=== PATIENT | male | born 1955 | race Caucasian/White ===

== ENCOUNTER 2024-01-07 10:12 | Emergency (ER) | payer OTHER, SELFPAY ==
[2024-01-07 10:20] VITALS: BP 127/83
[2024-01-07 10:49] LABS: % Eosinophils 1.7 % (0-6); % Immature Granulocytes 0.3 % (0-0.5); % Lymphocytes 18.2 % (20.5-51.1); % Monocytes 8.5 % (1.7-9.3); % Neutrophils 70.3 % (42.2-75.2); Absolute Basophils 0.1 10^3/uL (0-0.2); Absolute Eosinophils 0.1 10^3/uL (0-0.7); Absolute Lymphocytes 1.4 10^3/uL (1.2-3.4); Absolute Monocytes 0.7 10^3/uL (0.1-0.6); Absolute Neutrophils 5.4 10^3/uL (1.4-6.5); Hematocrit 44.9 % (39.0-52.0); Hemoglobin 15.1 g/dL (13.0-18.0); Mean Corp Hgb Conc. 33.6 g/dL (33.0-37.0); Mean Corpuscular Hgb 28.4 pg (27.0-31.0); Mean Corpuscular Volume 84.4 fL (80.0-94.0); Mean Platelet Volume 10.5 fL (7.4-10.4); Nucleated Red Blood Cells % 0 % (-); Platelet Count 299 10^3/uL (130-400); Red Blood Cell Count 5.32 10^6/uL (4.70-6.10); White Blood Cell Count 7.7 10^3/uL (4.8-10.8)
[2024-01-07 10:59] VITALS: BP 126/73; BMI 29.0
[2024-01-07 10:59] LABS: ALT (SGPT) 19 U/L (0-50); AST (SGOT) 22 U/L (17-59); Albumin 4.4 g/dl (3.5-5.0); Alkaline Phosphatase 99 U/L (38-126); Blood Urea Nitrogen 18 mg/dl (9-20); Calcium 9.5 mg/dl (8.4-10.2); Carbon Dioxide 21 mmol/L (22-30); Chloride 104 mmol/L (98-107); Glucose 142 mg/dl (70-99); Potassium 4.5 mmol/L (3.5-5.1); Sodium 140 mmol/L (135-145); Total Bilirubin 0.6 mg/dl (0.2-1.3); Total Protein 7.4 g/dl (6.3-8.2); eGFR > 60.00
--- NOTE | 2024-01-07 11:09 | ED.GENMED ---
History of Present Illness
General
Chief Complaint: Dizziness
Source: patient and spouse
Exam Limitations: none
Time Seen by Provider: 01/07/24 10:41
Nursing documentation reviewed up to this point in time: agreed with
History of Present Illness
History of Present Illness:
68 yo male w h/o headaches, MA, NIDDM, Cardiac stents presents for dizziness, headache. 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 He is imbalanced with ambulation,
listing to the right. Moving head side to side makes the room spin. Has had nausea, no vomiting. He is sleeping well through nights. Headache is frontal 5/10. Took ASA once with no improvement. No recent head trauma. Not anticoagulate. Denies
numbness, tingling weakness in extremities.
Past History
Past History
ED Past Medical History: Hypercholesterolemia, NIDDM and MA
ED Past Surgical History: Cardiac (stent)
Patient has exhibited threatening behavior?: No
PSI?: No
Social History
Personal:
Living: with family
Employment: Employed
Review of Systems
Review of Systems
Allergies reviewed?: Yes
All Other Systems: ROS reviewed and negative except as documented in HPI and ROS
Constitutional: Denies fever
Respiratory: Denies trouble breathing
Cardiac: Denies chest pain, palpitations or syncope
ABD/GI: Reports nausea; Denies abdominal pain, vomiting or diarrhea
Musculoskeletal: Reports no symptoms
Skin: Reports no symptoms
Neurological: Reports dizzy and headache; Denies weakness
Phy Exam
Physical Exam
Physical Exam:
GENERAL: No acute distress. A&Ox3.
CONSTITUTIONAL: Afebrile.
EYES: PERRL, conjunctivae normal
Neck: Supple
ENMT: moist mucus membranes, Pharynx nl
RESPIRATORY: Regular respirations, nonlabored, lungs clear.
CARDIOVASCULAR: Regular rate and rhythm, no murmurs, no rubs.
GI: Soft, nontender, normal BS
MUSCULOSKELETAL: Moves with ease. Well perfused.
SKIN: Warm, dry, pink
PSYCH: Normal mood and affect. Well kept, interactive and appropriate
NEUROLOGIC: Awake, alert and oriented. Cranial nerves II through XII intact. [id number] intact. Romberg negative. No focal neurological deficits
Course
Orders/Labs/Results
Orders:
Orders
01/07/24 10:27
Electrocardiogram (*1) Urgent
Reason for Study: Vertigo / Dizzy
EKG- Treatment ONCE
01/07/24 10:36
Complete Blood Count/With Diff Urgent
Comprehensive Metabolic Panel Urgent
01/07/24 11:41
CT Head W/o Iv Contrast Urgent
Comment:
Reason For Exam: dizziness, nausea, headache
01/07/24 13:19
Physical Therapy Consult [Pt Eval And Treat] Urgent
Treatment: Vestibular evaluation
Activity Level: As Tolerated
Abnormal Lab Results
01/07/24
10:36
MPV 10.5 H fL
(7.4-10.4)
Absolute Monos (auto) 0.7 H 10^3/uL
(0.1-0.6)
Lymphocytes % 18.2 L %
(20.5-51.1)
Carbon Dioxide 21 L mmol/L
(22-30)
Glucose 142 H mg/dl
(70-99)
01/07/24 10:36
01/07/24 10:36
Vital Signs
Initial and Last Documented VS:
Initial Vital Signs
Temp Pulse Resp BP Pulse Ox
97.9 F 67 18 127/83 99
01/07/24 10:20 01/07/24 10:20 01/07/24 10:20 01/07/24 10:20 01/07/24 10:20
Last Documented Vital Signs
Temp Pulse Resp BP Pulse Ox
97.9 F 58 18 110/70 97
01/07/24 10:20 01/07/24 15:00 01/07/24 15:00 01/07/24 12:00 01/07/24 11:15
MDM/Problems Addressed
Differential Diagnosis Includes:
BPPV, labyrinthitis, CVA
MDM/Problems Addressed:
68 yo male w h/o headaches, MA, NIDDM, Cardiac stents presents for dizziness, headache. 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 He is imbalanced with ambulation,
listing to the right. Moving head side to side makes the room spin. Has had nausea, no vomiting. He is sleeping well through nights. Headache is frontal 5/10. Took ASA once with no improvement. No recent head trauma. Not anticoagulate. Denies
numbness, tingling weakness in extremities.
EKG sinus bradycardia with RBBB, no change
11:10 AM:
CBC unremarkable
CMP unremarkable
Head CT negative
3:45 p.m.
Physical therapy Dolores in, states patient is positive for BPPV with right posterior canal listhesis
She given referral to the vestibular clinic and I gave them a prescription for same
Patient states he is feeling much better
Prescription for meclizine sent to pt pharmacy
Pt ambulated out with normal gait
*EKG
EKG Intrepretation Date: 01/07/24
Interpretation: abnormal
Comparison EKG: no comparison EKG present
Heart Rate: 58
Rate: bradycardiac
Rhythm: sinus
Placedo: left axis deviation
Interval: normal interval
QRS Pattern: right bundle branch block
Ischemia: no ischemia
*Critical Care Note
Total Time (30-74mins, 75-104mins- exclusive of procedures): Not Applicable
ED Attending Note
-
Portions of this chart may have been created with voice recognition software.� Occasional wrong word or��sound alike� substitutions may have occurred due to the inherent limitations of voice recognition software.
Discharge Plan
Departure
Patient Disposition: Home (Routine Discharge)
Date of Disposition: 01/07/24
Time of Disposition: 15:48
Patient with high blood pressure during this ER visit?: No
Condition: Good
Discharge Problem:
Benign paroxysmal positional vertigo
Instructions: Vertigo (a type of dizziness), Vestibular Exercises
Prescriptions:
New
meclizine 25 mg tablet
25 mg PO TID PRN (Reason: dizziness) Qty: 20 0RF
No Action
Onglyza 2.5 MG tablet
5 mg PO QPM
atorvastatin 80 MG tablet
80 mg PO QPM Qty: 90 3RF
clopidogrel 75 MG tablet
75 mg PO DAILY Qty: 90 3RF
aspirin 81 MG tablet,chewable
81 mg PO DAILY Qty: 0 0RF
nitroglycerin 0.4 MG tablet, sublingual
0.4 mg sublingual [id number] PRN (Reason: chest pain) Qty: 25 2RF
metformin 1,000 MG tablet
1,000 mg PO BID Qty: 0 0RF
Rx Instructions:
HOLD post cath- OK to resume on Sun 11/03 in AM
(DME) blood sugar diagnostic [Blood Glucose Test] 1 EACH strip
1 ea MC BID Qty: 100 1RF
Rx Instructions:
E 11.65
Test strips for Contour next to test BID as directed
(DME) lancets 1 EACH misc
1 ea MC BID Qty: 100 0RF
Rx Instructions:
E 11.65
Contour Next lancets
gabapentin 100 mg Capsule
200 mg PO HS Qty: 60 0RF
Referrals:
Willian Aguirre, DO [Family Provider] - As needed
Activity Restrictions/Additional Instructions:
As discussed, I sent a prescription to your pharmacy for meclizine to take as needed for dizziness.
Call and make an appointment with the vestibular clinic as you discussed with the physical therapist Dolores
Interventions
Interventions:
*Risk Screen - Suicide Last Done: 01/07/24 10:24
*General Assessment Last Done: 01/07/24 11:00
*Neglect/Abuse Screening Last Done: 01/07/24 10:24
ED- Fall Risk Assessment Last Done: 01/07/24 11:00
*ED COVID-19 Vaccine History Last Done: 01/07/24 11:00
*Nursing Disposition Last Done: 01/07/24 15:56
ED- Neurological Assessment Last Done: 01/07/24 11:00
ED- Cardiac Assessment Last Done: 01/07/24 11:00
Discharge Date and Time
Discharge Date/Time: 01/07/24 16:00
Print Language: BULGARIAN
[2024-01-07 12:00] VITALS: BP 110/70
[2024-01-07 15:50] VITALS: BP 110/82; PULSE 60
== END 2024-01-07 16:00 | disposition home or self-care (01) ==
LOC: EMR 10:12
PROVIDERS: Registered Nurse; EMERGENCY PHYSICIAN Emergency Medicine; FAMILY PHYSICIAN Family Medicine
DX: H81.11 Benign paroxysmal vertigo, right ear (principal); I25.2 Old myocardial infarction; E11.9 Type 2 diabetes mellitus without complications
CPT/HCPCS: 99285; 70450; 80053; 85025; 93005

== ENCOUNTER 2025-01-30 21:30 | Inpatient (IN) | payer OTHER, SELFPAY ==
[2025-01-30] VITALS (8 sets, daily range): BP systolic 115–129; BP diastolic 49–72
[2025-01-30 13:04] LABS: Hematocrit 42.9 % (39.0-52.0); Hemoglobin 14.3 g/dL (13.0-18.0); Mean Corp Hgb Conc. 33.3 g/dL (33.0-37.0); Mean Corpuscular Volume 84.8 fL (80.0-94.0); Nucleated Red Blood Cells % 0 % (-); Platelet Count 270 10^3/uL (130-400); Red Cell Dist. Width 13.0 % (11.5-14.5)
[2025-01-30 13:20] LABS: COVID-19 Antigen Negative (Negative)
[2025-01-30 13:25] LABS: ALT (SGPT) 13 U/L (0-50); AST (SGOT) 14 U/L (17-59); Albumin 4.2 g/dl (3.5-5.0); Alkaline Phosphatase 105 U/L (38-126); Blood Urea Nitrogen 14 mg/dl (9-20); Calcium 8.9 mg/dl (8.4-10.2); Carbon Dioxide 23 mmol/L (22-30); Chloride 105 mmol/L (98-107); Glucose 179 mg/dl (70-99); Potassium 4.9 mmol/L (3.5-5.1); Sodium 136 mmol/L (135-145); Total Protein 7.3 g/dl (6.3-8.2); eGFR > 60.00
[2025-01-30 13:34] LABS: Troponin I < 0.012 ng/ml
--- NOTE | 2025-01-30 14:50 | ED.GENMED ---
History of Present Illness
<PRISCILA Contreras - Last Filed: 01/30/25 19:42>
General
Chief Complaint: Dizziness
Source: patient
Exam Limitations: none
Time Seen by Provider: 01/30/25 14:40
Nursing documentation reviewed up to this point in time: agreed with
History of Present Illness
History of Present Illness:
Patient is a 69-year-old male with past medical history of CAD [place] cardiac stents peripheral neuropathy diabetes diabetes presents to the ER for evaluation. Family reports patient has had a cough for the past 2 weeks. Patient complains of mild body
directed fevers. Recently however he has had increasing confusion. Family reports at times he seems delirious and very confused stating things that does not make any sense. at bedside reports she does feel however that this has been
intermittent for the past month. In addition his balance is very off they believe that symptoms have worsened for the past several days since he has been sick but the symptoms are not necessarily new. Daughter at bedside reports she is very
concerned about his medications. She was looking at his medications and realized the patient is on gabapentin 300 mg 3 times daily and gabapentin 800 mg twice daily as well. In addition he is on meclizine however they are not sure why he is on
this medication. Yeah
Pt does not drink alcohol, non smoker. yeah
Past History
<PRISCILA Contreras - Last Filed: 01/30/25 19:42>
Past History
ED Past Medical History: Hypercholesterolemia, NIDDM and [place]
ED Past Surgical History: Cardiac (stent)
Patient has exhibited threatening behavior?: No
PSI?: No
Social History
Personal:
Living: with family
Employment: Employed
Phy Exam
<PRISCILA Contreras - Last Filed: 01/30/25 19:42>
General Physical Exam
General Presentation: no apparent distress
General age: appears stated age
General Skin: warm and dry
General Habitus: normal
General Mental: alert
General Hydration: dry mucous membranes
Cardiovascular Exam
Cardiovascular Exam: regular rate/rhythm, no murmur and normal peripheral pulses
Pulmonary Exam
Pulmonary Exam: lungs clear and no respiratory distress
Neurological Exam
Neurological Exam: alert, oriented x3, no motor deficits and no sensory deficits
Musculoskeletal Exam
Musculoskeletal Exam: full ROM
Skin Exam
Skin Exam: normal color and warm/dry
Psychiatric Exam
Psychiatric Exam: normal mood/affect
Course
<PRISCILA Contreras - Last Filed: 01/30/25 19:42>
Orders/Labs/Results
Orders:
Orders
01/30/25 12:40
Electrocardiogram (*1) Urgent
Reason for Study: Chest Pain
01/30/25 12:41
EKG- Treatment ONCE
01/30/25 12:55
COVID-19 Antigen Urgent
Source: Nasal Swab
Complete Blood Count/With Diff Urgent
Comprehensive Metabolic Panel Urgent
Troponin I Urgent
Influenza A+B Rapid Molecular Urgent
PK Source: Nasal Swab
Specimen Description:
01/30/25 14:[address] [CT Head W/o Iv Contrast] Urgent
Comment:
Reason For Exam: confusion
01/30/25 15:09
Chest [CR Chest - 2 Views ] Urgent
Comment:
Reason For Exam: cough /sob
01/30/25 15:20
0.9% Sodium Chloride 1000 ml [Nss] 1,000 ml IV BOLUS
01/30/25 19:21
UA Reflex to Culture [Urinalysis Reflex To Culture] Urgent
Date Specimen was Collected: 01/30/25
Time Specimen was Collected: 17:52
01/30/25 19:34
Azithromycin 500 mg/250 ml [Zithromax Infusion] 500 mg in 250 ml IV NOW
CefTRIAXone [Rocephin] 1,000 mg IV NOW STA
01/30/25 19:59
Sterile Water [Sterile Water For Injection] 10 ml .ROUTE .STK-MED ONE
01/30/25 20:30
Ketorolac [Toradol] 15 mg IV NOW STA
Abnormal Lab Results
01/30/25 01/30/25
12:55 19:21
WBC 13.0 H 10^3/uL
(4.8-10.8)
MPV 10.6 H fL
(7.4-10.4)
Abs Immat Gran (auto) 0.1 H 10^3/uL
(0-0.05)
Absolute Neuts (auto) 11.1 H 10^3/uL
(1.4-6.5)
Absolute Lymphs (auto) 0.5 L 10^3/uL
(1.2-3.4)
Absolute Monos (auto) 1.1 H 10^3/uL
(0.1-0.6)
Neutrophils % 85.5 H %
(42.2-75.2)
Lymphocytes % 4.1 L %
(20.5-51.1)
Glucose 179 H mg/dl
(70-99)
AST 14 L U/L
(17-59)
Urine Urobilinogen 2+ A
(Neg - 1+)
01/30/25 12:55
01/30/25 12:55
Vital Signs
Initial and Last Documented VS:
Initial Vital Signs
Temp Pulse Resp BP Pulse Ox
99.5 F 73 18 122/65 97
01/30/25 12:34 01/30/25 12:34 01/30/25 12:34 01/30/25 12:34 01/30/25 12:34
Last Documented Vital Signs
Temp Pulse Resp BP Pulse Ox
99.5 F 77 16 129/62 97
01/30/25 20:02 01/30/25 20:02 01/30/25 20:02 01/30/25 20:02 01/30/25 20:02
[employer] Library Clerk consulted with Physician
[employer] Library Clerk consulted with physician?: Yes
Name of Physician Consulted: alanna
<Sonia Bal MD - Last Filed: 01/30/25 20:32>
Orders/Labs/Results
Orders:
Orders
01/30/25 12:40
Electrocardiogram (*1) Urgent
Reason for Study: Chest Pain
01/30/25 12:41
EKG- Treatment ONCE
01/30/25 12:55
COVID-19 Antigen Urgent
Source: Nasal Swab
Complete Blood Count/With Diff Urgent
Comprehensive Metabolic Panel Urgent
Troponin I Urgent
Influenza A+B Rapid Molecular Urgent
PK Source: Nasal Swab
Specimen Description:
01/30/25 14:[address] [CT Head W/o Iv Contrast] Urgent
Comment:
Reason For Exam: confusion
01/30/25 15:09
Chest [CR Chest - 2 Views ] Urgent
Comment:
Reason For Exam: cough /sob
01/30/25 15:20
0.9% Sodium Chloride 1000 ml [Nss] 1,000 ml IV BOLUS
01/30/25 19:21
UA Reflex to Culture [Urinalysis Reflex To Culture] Urgent
Date Specimen was Collected: 01/30/25
Time Specimen was Collected: 17:52
01/30/25 19:34
Azithromycin 500 mg/250 ml [Zithromax Infusion] 500 mg in 250 ml IV NOW
CefTRIAXone [Rocephin] 1,000 mg IV NOW STA
01/30/25 19:59
Sterile Water [Sterile Water For Injection] 10 ml .ROUTE .STK-MED ONE
01/30/25 20:30
Ketorolac [Toradol] 15 mg IV NOW STA
Abnormal Lab Results
01/30/25 01/30/25
12:55 19:21
WBC 13.0 H 10^3/uL
(4.8-10.8)
MPV 10.6 H fL
(7.4-10.4)
Abs Immat Gran (auto) 0.1 H 10^3/uL
(0-0.05)
Absolute Neuts (auto) 11.1 H 10^3/uL
(1.4-6.5)
Absolute Lymphs (auto) 0.5 L 10^3/uL
(1.2-3.4)
Absolute Monos (auto) 1.1 H 10^3/uL
(0.1-0.6)
Neutrophils % 85.5 H %
(42.2-75.2)
Lymphocytes % 4.1 L %
(20.5-51.1)
Glucose 179 H mg/dl
(70-99)
AST 14 L U/L
(17-59)
Urine Urobilinogen 2+ A
(Neg - 1+)
01/30/25 12:55
01/30/25 12:55
Vital Signs
Initial and Last Documented VS:
Initial Vital Signs
Temp Pulse Resp BP Pulse Ox
99.5 F 73 18 122/65 97
01/30/25 12:34 01/30/25 12:34 01/30/25 12:34 01/30/25 12:34 01/30/25 12:34
Last Documented Vital Signs
Temp Pulse Resp BP Pulse Ox
99.5 F 77 16 129/62 97
01/30/25 20:02 01/30/25 20:02 01/30/25 20:02 01/30/25 20:02 01/30/25 20:02
<PRISCILA Contreras - Last Filed: 01/30/25 19:42>
MDM/Problems Addressed
Differential Diagnosis Includes:
Not limited to COVID, pneumonia, influenza
MDM/Problems Addressed:
69-year-old male presented with cough over the past 1 to 2 weeks however family reports he is weak and not himself. In addition they report off-and-on for the past several months he has had some issues with walking and intermittent confusion.
He is on a lot of gabapentin as well as questionable meclizine however there is no clear reason for meclizine. His primary complaint is cough he does have an elevated white count of 13,000 temp is 99.5. Chest x-ray reviewed with radiology shows
suspicious for interstitial infiltrate in the left perihilar and lower lobe. Would recommend admission
<PRISCILA Contreras - Last Filed: 01/30/25 19:42>
*Radiology
Radiology exam reviewed: radiology read reviewed
*Pulse Oximetry
SaO2: 99
Oxygen Mode of Delivery: Room air
Patient hypoxic: no
*EKG
Interpreted by ED Provider?: Yes
Heart Rate: 68
Rate: normal
Rhythm: sinus
Ischemia: non-specific ST changes
*Critical Care Note
Total Time (30-74mins, 75-104mins- exclusive of procedures): Not Applicable
ED Attending Note
<PRISCILA Contreras - Last Filed: 01/30/25 19:42>
-
Portions of this chart may have been created with voice recognition software.� Occasional wrong word or��sound alike� substitutions may have occurred due to the inherent limitations of voice recognition software.
<Sonia Bal MD - Last Filed: 01/30/25 20:32>
ED Attending Note
Patient seen and examined by attending physician: Yes
I performed the substantive portion of visit, reviewed & personally made and approve the management plan that is documented in note by myself or ANAHI.: Yes
ED Attending Note:
Patient appears nontoxic. He is breathing comfortably. Heart sounds regular. Abdomen is soft and nontender. Family expresses they are very concerned that he has had several months of being off balance and at times confusion.
Discharge Plan
Departure
Patient Disposition: Admit
Date of Disposition: 01/30/25
Time of Disposition: 19:38
Admit to: Med/Surg
Admit to doctor: hospitalist
Presentation/result/management discussed w/ accepting MD/DO: Hospitalist
Patient with high blood pressure during this ER visit?: No
Condition: Fair
Covid-19: Not Applicable
Discharge Problem:
Pneumonia
Prescriptions:
No Action
saxagliptin [Onglyza] 2.5 MG tablet
5 mg PO QPM
Rx Instructions:
not on list obtained by daughter from PCP today
atorvastatin 80 MG tablet
80 mg PO QPM Qty: 90 3RF
Rx Instructions:
not on list obtained by daughter from PCP today
clopidogrel 75 MG tablet
75 mg PO DAILY Qty: 90 3RF
Rx Instructions:
not on list obtained by daughter from PCP today
aspirin 81 MG tablet,chewable
81 mg PO DAILY Qty: 0 0RF
nitroglycerin 0.4 MG tablet, sublingual
0.4 mg sublingual [id number] PRN (Reason: chest pain) Qty: 25 2RF
Rx Instructions:
not on list obtained by daughter from PCP today
metformin 1,000 MG tablet
1,000 mg PO BID Qty: 0 0RF
Rx Instructions:
HOLD post cath- OK to resume on Sun 11/03 in AM
(DME) blood sugar diagnostic [Blood Glucose Test] 1 EACH strip
1 ea MC BID Qty: 100 1RF
Rx Instructions:
E 11.65
Test strips for Contour next to test BID as directed
(DME) lancets 1 EACH misc
1 ea MC BID Qty: 100 0RF
Rx Instructions:
E 11.65
Contour Next lancets
meclizine 25 mg tablet
25 mg PO TID PRN (Reason: dizziness) Qty: 20 0RF
gabapentin 100 mg capsule
300 mg PO 3XD
Rx Instructions:
patient takes 100 mg tablet, 3 times daily
gabapentin 400 mg Capsule
400 mg PO BID
mirtazapine [Remeron] 15 mg Tablet
2.5 mg PO DAILY
Rx Instructions:
2.5 mg daily according to patient's medication list obtained by daughter from PCP
rosuvastatin 40 mg Tablet
40 mg PO DAILY
Januvia 100 mg Tablet
100 mg PO DAILY
Jardiance 25 mg Tablet
25 mg PO DAILY
Rybelsus 3 mg Tablet
3 mg PO DAILY
Referrals:
Willian Aguirre DO [Family Provider, Family Practice]
Interventions
Interventions:
*General Assessment Last Done: 01/30/25 12:34
*Neglect/Abuse Screening Last Done: 01/30/25 20:00
*ED COVID-19 Vaccine History Last Done: 01/30/25 12:34
*ED Influenza Vaccine History Last Done: 01/30/25 12:34
[facility] Fall Risk Assessment Tool Last Done: 01/30/25 16:00
*Risk Screen - Suicide (C-SSRS) Last Done: 01/30/25 12:34
ED- Neurological Assessment Last Done: 01/30/25 16:00
ED- Cardiac Assessment Last Done: 01/30/25 16:00
ED Swallowing Screen Last Done: 01/30/25 16:00
Discharge Date and Time
Print Language: LAO
[2025-01-30] MEDS: NSS 1000 IV (17:55)
[2025-01-30 19:28] LABS: Urine Character Clear (Clear)
[2025-01-30] MEDS: ZITHROMAX INFUSION 250 IV (20:04)
[2025-01-30] MEDS: ROCEPHIN 1000 MG IV (20:04)
--- NOTE | 2025-01-30 21:17 | HPS.HSE ---
Family Physician
-
Family Physician: Willian Aguirre
Chief Complaint
-
Cough, Weakness, Confusion
History of Present Illness
Patient is a 69y M with PMH significant for ASCVD and DM-II who presents to ED complaining of cough, myalgias and confusion. History obtained from patient and family at the bedside. Patient states that he developed aches, cough and feeling
feverish about 3 days ago. His symptoms have progressed. is beginning to develop similar symptoms. No other known sick contacts. Patient denies any productive cough, SOB, etc. Family states that he has been more unsteady on his feet and
more confused in the past few days as well.
Today while at work with his son, he appeared to be completely unresponsive. He did not fall or suffer any injury. Son notes that he was yelling at the patient and patient was staring with no response. When he 'came to' he had no recollection of
that.
Patient and family note that he has had ongoing / progressive issues with intermittent headaches, unsteady gait and mild confusion / memory impairment for several years. Initial hospitalization here with complaint of headaches in 2021 and he was
evaluated by Neurology at that time. He notes that his symptoms have continued progressed. He is always unsteady upon standing. Patient was referred for outpatient eval / testing but notes that he became discouraged with long waits for
appointments / tests and was lost to follow-up. He has been on increasing doses of gabapentin since 2021 with minimal change in his symptoms.
These symptoms have been much worse in the past few days due to acute illness / pneumonia.
Medical History
Past Medical History
Past Medical History: Reports Other
Additional Past Medical History:
ASCVD
DM-II
RBBB
Peripheral Neuropathy
Past Surgical History: Reports Other
Additional Past Surgical History:
PTCA with Stent
Social History
Tobacco: Non-smoker
Alcohol: None
Drug: None
Personal:
Living: With Family
Family History
Family History: Other (Sister: Bone Cancer Mother: DM-II, CAD)
Allergies / Home Medications
Allergies reflects when Allergies were last updated in [employer].
Home Medications with original date entered in [employer]
Allergy/Medication List:
Allergies
Allergy/AdvReac Type Severity Reaction Status Date / Time
No Known Allergies Allergy Verified 01/30/25 12:40
Home Medications
aspirin 81 mg chewable tablet 81 mg PO DAILY #0 tabs 11/01/18
metformin 1,000 mg tablet 1,000 mg PO BID ##0 11/01/18
meclizine 25 mg tablet 25 mg PO TID PRN dizziness #20 tabs 01/07/24
empagliflozin 25 mg tablet (Jardiance) 25 mg PO DAILY 01/30/25
gabapentin 100 mg capsule 300 mg PO 3XD 01/30/25
gabapentin 400 mg capsule 400 mg PO BID 01/30/25
mirtazapine 15 mg tablet (Remeron) 2.5 mg PO DAILY 01/30/25
rosuvastatin 40 mg tablet 40 mg PO DAILY 01/30/25
semaglutide 3 mg tablet (Rybelsus) 3 mg PO DAILY 01/30/25
sitagliptin phosphate 100 mg tablet (Januvia) 100 mg PO DAILY 01/30/25
Review of Systems
-
History Source: Patient and Family
A 12 point ROS was completed and negative except as noted: Yes
Constitutional: Reports Fever and Fatigue; Denies Chills
EENT: Denies Sore Throat
Respiratory: Reports Cough; Denies Hemoptysis or Trouble Breathing
Cardiac: Denies Chest Pain or Palpitations
Abdomen/GI: Denies Abdominal Pain, Nausea, Vomiting or Diarrhea
: Denies Dysuria, Frequency or Flank Pain
Neurological: Reports Headache, Weakness and Other (Neuropathy pain.); Denies Dizzy
Psych: Reports Depression; Denies Anxiety
Physical Exam
Vital Signs
Vital Signs
Temp Pulse Resp BP Pulse Ox
99.5 F 77 16 129/62 97
01/30/25 20:02 01/30/25 20:02 01/30/25 20:02 01/30/25 20:02 01/30/25 20:02
Physical Exam
General: Other (69y M in no acute distress.)
HEENT: Other (Dry MM. Neck supple.)
Respiratory: Other (Coarse breath sounds mid left lung. No wheezing.)
Cardiac: S1/S2 and Regular Rhythm; No Murmur
GI: Soft, Non Tender, Non Distended and Normal Bowel Sounds
Musculoskeletal: No Clubbing, No Cyanosis and No Edema
Neuro: Other (Strength appears intact / symmetric. [id number] is slow but intact. Decreased sensation b/l LEs.)
Laboratory Results
-
01/30/25 12:55
01/30/25 12:55
Laboratory Results
Total Bilirubin 0.4 mg/dl (0.2-1.3) 01/30/25 12:55
AST 14 U/L (17-59) L 01/30/25 12:55
ALT 13 U/L (0-50) 01/30/25 12:55
Alkaline Phosphatase 105 U/L (38-126) 01/30/25 12:55
Troponin I < 0.012 ng/ml 01/30/25 12:55
Impression/Plan
-
A/P: Patient is a 69y M with PMH significant for ASCVD, DM-II and neuropathy who presents to ED complaining of cough, weakness and confusion.
Left Pneumonia
Acute TME secondary to the above
Sepsis secondary to the above
- Admit for further evaluation and treatment.
- Patient presents with cough and myalgias x 3 days and evidence of organ dysfunction in the form of acute TME / unresponsive episode.
- Abx coverage for CAP. COVID / flu negative in the ED.
- Supportive care with IVFs, nebs, etc.
- Follow for clinical improvement.
- Check serum lactate and follow if elevated.
Ambulatory Dysfunction
Headaches
Peripheral Neuropathy
- Chronic / progressive issue per patient and family - at least back to 2021.
- PT evaluation.
- Suspect he needs detailed Neurologic evaluation, likely as an outpatient given chronicity.
- ? developing Parkinsonism.
- Change gabapentin to Lyrica and monitor for any changes in symptoms.
- Monitor for some degree of acute improvement as pneumonia / sepsis improves.
ASCVD
- Stable. No current chest pain, etc.
- Continue current CV med regimen including ASA, statin, etc.
DM-II
- Stable. Continue Jardiance, Januvia. Hold metformin acutely.
- Follow glucose and cover with SSI as needed.
- Update A1C.
DVT Prophylaxis: Lovenox
Code Status: Full
[2025-01-30] MEDS: TORADOL 15 MG IV (21:20)
[2025-01-31] VITALS (8 sets, daily range): BP systolic 84–120; BP diastolic 40–66; PULSE 61–68; O2SAT 91–96; BMI 30.3
[2025-01-31] MEDS: NSS 1000 IV ×3 (00:31→21:08)
[2025-01-31] MEDS: LYRICA 50 MG PO ×4 (00:31→21:14)
[2025-01-31] MEDS: TYLENOL 650 MG PO ×2 (02:46→22:28)
[2025-01-31 06:56] LABS: Hematocrit 36.6 % (39.0-52.0); Hemoglobin 12.2 g/dL (13.0-18.0); Mean Corp Hgb Conc. 33.3 g/dL (33.0-37.0); Mean Corpuscular Volume 85.7 fL (80.0-94.0); Platelet Count 209 10^3/uL (130-400); Red Cell Dist. Width 13.2 % (11.5-14.5)
[2025-01-31 07:11] LABS: Blood Urea Nitrogen 17 mg/dl (9-20); Calcium 8.0 mg/dl (8.4-10.2); Carbon Dioxide 24 mmol/L (22-30); Chloride 107 mmol/L (98-107); Estimated Creatinine Clearance 77 ml/min; Glucose 143 mg/dl (70-99); Potassium 4.0 mmol/L (3.5-5.1); Sodium 136 mmol/L (135-145); eGFR > 60.00
[2025-01-31 08:37] LABS: Glucose - Point of Care 142 mg/dl (70-99)
[2025-01-31] MEDS: NOVOLOG FLEXPEN-LOW RESISTANCE SC ×2 (08:40→17:58)
[2025-01-31] MEDS: MUCINEX 1200 MG PO ×2 (09:23→21:09)
[2025-01-31] MEDS: VIBRAMYCIN 100 MG PO ×2 (09:24→21:10)
[2025-01-31] MEDS: FARXIGA 10 MG PO (09:24)
[2025-01-31] MEDS: LOW STRENGTH ASPIRIN 81 MG PO (09:24)
[2025-01-31] MEDS: JANUVIA 100 MG PO (09:31)
--- NOTE | 2025-01-31 11:03 | W.PN.HOSP.TC ---
Today's Communication/Plan
-
Continue current care.
Assessment / Plan
Assessment / Plan
69y M with PMH significant for ASCVD, DM-II and neuropathy who presents to ED complaining of cough, weakness and confusion.
1. Left Pneumonia - improving
Acute TME secondary to the above
Sepsis secondary to the above
- Patient presented with cough and myalgias x 3 days and evidence of organ dysfunction in the form of acute TME / unresponsive episode.
- Abx coverage for CAP. COVID / flu negative in the ED.
- Supportive care with IVFs, nebs, etc.
- Follow for clinical improvement.
- serum lactate not elevated.
2. Ambulatory Dysfunction
Complicated by Headaches
Complicated by Peripheral Neuropathy
- Chronic / progressive issue per patient and family - at least back to 2021.
- PT evaluation.
(Suspect he needs detailed Neurologic evaluation, likely as an outpatient given chronicity)
? developing Parkinsonism.
- Changed gabapentin to Lyrica and monitor for any changes in symptoms.
- Monitor for some degree of acute improvement as pneumonia / sepsis improves.
3. ASCVD
- Stable. No current chest pain, etc.
- Continue current CV med regimen including ASA, statin, etc.
4. DM-II
- Stable. Continue Jardiance, Januvia. Held metformin acutely.
- Follow glucose and cover with SSI as needed.
- Updated A1C (10.1)
DVT Prophylaxis: Lovenox
Code Status: Full
Anticipated Discharge: 24 - 48 hours
Subjective/Interval History
-
Date of Service: January 31, 2025
Feels better
Objective Data
-
Labs:
Laboratory Results
01/31/25
06:21
WBC 6.5
Hgb 12.2 L
Hct 36.6 L
Plt Count 209 D
Sodium 136
Potassium 4.0
Chloride 107
Carbon Dioxide 24
BUN 17
Creatinine 1.2
Glucose 143 H
Calcium 8.0 L
Vital Signs:
Vital Signs
Temp Pulse Resp BP Pulse Ox
100.4 F H 65 18 106/51 94
01/31/25 07:00 01/31/25 07:00 01/31/25 07:00 01/31/25 07:00 01/31/25 07:00
Review of Systems
-
History Source: Patient
All other systems: Reviewed and negative
Physical Exam
-
General: Well Developed, Well Nourished, No Apparent Distress, Comfortable and Conversant
HEENT: Normocephalic, Atraumatic and Moist Mucous Membranes
Respiratory: Decreased Breath Sounds
Cardiac: Regular Rhythm and S1/S2
GI: Soft, Nontender and Nondistended
Musculoskeletal: No Clubbing, No Cyanosis and No Edema
Skin: Warm and Dry; Negative Rash
Neuro: Awake, Alert, Oriented and AO x 3
Psych: Calm
Data Reviewed
-
Labs: Labs Reviewed by me
[2025-01-31 12:31] LABS: Glucose - Point of Care 151 mg/dl (70-99)
[2025-01-31 12:43] LABS: Glycohemoglobin (HgbA1c) 7.4 % (4.0-5.9)
[2025-01-31] MEDS: NOVOLOG FLEXPEN-LOW RESISTANCE 1 UNITS SC (13:23)
[2025-01-31] MEDS: LOVENOX 40 MG SC (17:22)
[2025-01-31] MEDS: CRESTOR 40 MG PO (17:22)
[2025-01-31 17:56] LABS: Glucose - Point of Care 104 mg/dl (70-99)
[2025-01-31 20:57] LABS: Glucose - Point of Care 331 mg/dl (70-99)
[2025-01-31] MEDS: STERILE WATER FOR INJECTION 10 ML IV (21:19)
[2025-01-31] MEDS: ROCEPHIN 1000 MG IV (21:20)
[2025-02-01 03:00] VITALS: BP 119/65
[2025-02-01 06:00] VITALS: BMI 30.3
[2025-02-01 07:00] VITALS: BP 127/67
[2025-02-01] MEDS: NSS 1000 IV (07:20)
[2025-02-01 08:05] LABS: Hematocrit 37.2 % (39.0-52.0); Hemoglobin 12.3 g/dL (13.0-18.0); Mean Corp Hgb Conc. 33.1 g/dL (33.0-37.0); Mean Corpuscular Volume 85.7 fL (80.0-94.0); Platelet Count 191 10^3/uL (130-400); Red Cell Dist. Width 13.3 % (11.5-14.5)
[2025-02-01 08:33] LABS: Glucose - Point of Care 125 mg/dl (70-99)
[2025-02-01 08:34] LABS: Blood Urea Nitrogen 16 mg/dl (9-20); Calcium 7.9 mg/dl (8.4-10.2); Carbon Dioxide 20 mmol/L (22-30); Chloride 108 mmol/L (98-107); Estimated Creatinine Clearance 84 ml/min; Glucose 101 mg/dl (70-99); Potassium 3.9 mmol/L (3.5-5.1); Sodium 136 mmol/L (135-145); eGFR > 60.00
[2025-02-01] MEDS: NOVOLOG FLEXPEN-LOW RESISTANCE SC ×2 (09:06→12:21)
[2025-02-01] MEDS: VIBRAMYCIN 100 MG PO ×2 (09:07→20:25)
[2025-02-01] MEDS: FARXIGA 10 MG PO (09:08)
[2025-02-01] MEDS: JANUVIA 100 MG PO (09:08)
[2025-02-01] MEDS: LYRICA 50 MG PO ×3 (09:08→20:25)
[2025-02-01] MEDS: MUCINEX 1200 MG PO ×2 (09:08→20:25)
[2025-02-01] MEDS: LOW STRENGTH ASPIRIN 81 MG PO (09:08)
--- NOTE | 2025-02-01 10:29 | W.PN.HOSP.TC ---
Today's Communication/Plan
-
Encourage shower and ambulation today, in prep for DC tomorrow.
Assessment / Plan
Assessment / Plan
69y M with PMH significant for ASCVD, DM-II and neuropathy who presents to ED complaining of cough, weakness and confusion.
1. Left Pneumonia - improving
Acute Toxic Met Encephalopathy secondary to the above
Sepsis secondary to the above
- Patient presented with cough and myalgias x 3 days and evidence of organ dysfunction in the form of acute TME / unresponsive episode.
- Abx coverage for CAP. COVID / flu negative in the ED.
- Supportive care with IVFs, nebs, etc.
- Follow for clinical improvement - likely ready to go home tomorrow
- serum lactate not elevated.
2. Ambulatory Dysfunction
Complicated by Headaches
Complicated by Peripheral Neuropathy
- Chronic / progressive issue per patient and family - at least back to 2021.
- PT evaluation.
(Suspect he needs detailed Neurologic evaluation, likely as an outpatient given chronicity)
? developing Parkinsonism.
- Changed gabapentin to Lyrica and monitor for any changes in symptoms.
- Monitor for some degree of acute improvement as pneumonia / sepsis improves.
3. ASCVD
- Stable. No current chest pain, etc.
- Continue current CV med regimen including ASA, statin, etc.
4. DM-II
- Stable. Continue Jardiance, Januvia. Held metformin acutely.
- Follow glucose and cover with SSI as needed.
- Updated A1C (10.1)
DVT Prophylaxis: Lovenox
Code Status: Full
Anticipated Discharge: Within 24 hours
Subjective/Interval History
-
Date of Service: February 01, 2025
Feels well. No new issues.
Objective Data
-
Labs:
Laboratory Results
02/01/25
07:17
WBC 5.0
Hgb 12.3 L
Hct 37.2 L
Plt Count 191
Sodium 136
Potassium 3.9
Chloride 108 H
Carbon Dioxide 20 L
BUN 16
Creatinine 1.1
Glucose 101 H
Calcium 7.9 L
Vital Signs:
Vital Signs
Temp Pulse Resp BP Pulse Ox
99.7 F 55 18 127/67 94
02/01/25 07:00 02/01/25 07:00 02/01/25 07:00 02/01/25 07:00 02/01/25 07:00
I&O
01/31/25 02/01/25 02/02/25
06:59 06:59 06:59
Intake Total 960 / 960
Balance 960 / 960
Review of Systems
-
History Source: Patient
All other systems: Reviewed and negative
Physical Exam
-
General: Well Developed, Well Nourished, No Apparent Distress, Comfortable and Conversant
HEENT: Normocephalic, Moist Mucous Membranes, Nose Appears Normal and Ears Appear Normal
Respiratory: Decreased Breath Sounds
Cardiac: Regular Rhythm and S1/S2
GI: Soft, Nontender and Nondistended
Musculoskeletal: No Clubbing, No Cyanosis and No Edema
Skin: Warm and Dry
Neuro: Awake, Alert and Oriented
Psych: Calm
Data Reviewed
-
Labs: Labs Reviewed by me
[2025-02-01 11:00] VITALS: BP 126/65
[2025-02-01 11:45] LABS: Glucose - Point of Care 117 mg/dl (70-99)
--- NOTE | 2025-02-01 14:26 | CM ---
Patient lives with spouse in a 2 story home, patient is independent with adl's and ambulation, no dme, patient drives home when stable, no needs.
PCP: Willian Aguirre
Pharmacy: [facility]
[2025-02-01 15:00] VITALS: BP 130/69
[2025-02-01 16:41] LABS: Glucose - Point of Care 154 mg/dl (70-99)
[2025-02-01] MEDS: NOVOLOG FLEXPEN-LOW RESISTANCE 1 UNITS SC (17:07)
[2025-02-01] MEDS: LOVENOX 40 MG SC (17:07)
[2025-02-01] MEDS: CRESTOR 40 MG PO (17:08)
[2025-02-01 19:00] VITALS: BP 123/68
[2025-02-01] MEDS: STERILE WATER FOR INJECTION 10 ML IV (20:25)
[2025-02-01] MEDS: ROCEPHIN 1000 MG IV (20:25)
[2025-02-01 21:19] LABS: Glucose - Point of Care 141 mg/dl (70-99)
[2025-02-01 23:00] VITALS: BP 130/71
[2025-02-02 03:00] VITALS: BP 117/47
[2025-02-02 06:00] VITALS: BMI 29.9
[2025-02-02 06:48] LABS: Hematocrit 39.7 % (39.0-52.0); Hemoglobin 13.3 g/dL (13.0-18.0); Mean Corp Hgb Conc. 33.5 g/dL (33.0-37.0); Mean Corpuscular Volume 84.1 fL (80.0-94.0); Platelet Count 199 10^3/uL (130-400); Red Cell Dist. Width 13.2 % (11.5-14.5)
[2025-02-02 07:01] VITALS: BP 120/60
[2025-02-02 07:36] LABS: Blood Urea Nitrogen 15 mg/dl (9-20); Calcium 8.2 mg/dl (8.4-10.2); Carbon Dioxide 19 mmol/L (22-30); Chloride 110 mmol/L (98-107); Estimated Creatinine Clearance 91 ml/min; Glucose 103 mg/dl (70-99); Potassium 3.9 mmol/L (3.5-5.1); Sodium 137 mmol/L (135-145); eGFR > 60.00
[2025-02-02] MEDS: MUCINEX 1200 MG PO (08:19)
[2025-02-02] MEDS: JANUVIA 100 MG PO (08:19)
[2025-02-02] MEDS: FARXIGA 10 MG PO (08:19)
[2025-02-02] MEDS: LOW STRENGTH ASPIRIN 81 MG PO (08:20)
[2025-02-02] MEDS: VIBRAMYCIN 100 MG PO (08:20)
[2025-02-02] MEDS: LYRICA 50 MG PO (08:22)
[2025-02-02 08:36] LABS: Glucose - Point of Care 118 mg/dl (70-99)
[2025-02-02] MEDS: NOVOLOG FLEXPEN-LOW RESISTANCE SC ×2 (08:40→12:03)
[2025-02-02 10:44] VITALS: BP 150/70; PULSE 58; O2SAT 97
--- NOTE | 2025-02-02 10:49 | PTOTSP ---
Pt feels well. He is able to ambulate in hallway with steady gait and climb steps with railing without difficulty. No further acute PT needs, so PT will sign off.
[2025-02-02 11:00] VITALS: BP 150/70
[2025-02-02 11:41] LABS: Glucose - Point of Care 124 mg/dl (70-99)
--- NOTE | 2025-02-02 12:02 | W.DCSUMMARY ---
Discharge Summary
Discharge Data
Date of Admission: 01/30/25
Date of Discharge: 02/02/25
Total time spent discharging patient (in min): 48
-
Pending Results: No
Hospital Course
Mr. Croreia is a 69-year-old male with a medical history of NIDDM, peripheral neuropathy, and CAD (status post stent) who presented with cough, encephalopathy, and myalgias. He tested negative for influenza or COVID. Chest imaging showed a left
lower lobe pneumonia. He clinically improved after being started on antibiotics. His home gabapentin and mirtazapine were held during this admission due to the potential to contribute to his drowsiness. His gabapentin was switched to pregabalin
for treatment of his neuropathy. He will need to follow-up with his primary care physician after discharge for further evaluation and medication adjustments as needed. He will be discharged with a prescription for 4 more days of oral antibiotics
to complete a total 7-day course.
General: No Apparent Distress, Comfortable and Conversant
HEENT: NormoCephalic, Moist mucous membranes, Atraumatic
Respiratory: Clear and Non Labored Respirations
Cardiac: S1/S2 and Regular Rhythm; No Rub or Gallop
GI: Soft, Non Tender, Non Distended and Normal Bowel Sounds
Musculoskeletal: No Edema, no deformity
: NO Ceballos
Neuro: Awake, Alert, Nonfocal/grossly intact
Psych: Calm and Intact Judgment/Insight
Discharge Plan
-
Patient Disposition: Home (Routine Discharge)
Discharge Diagnosis/Procedures: Community-acquired pneumonia
Toxic metabolic encephalopathy
Activity Restrictions/Additional Instructions:
You were admitted for treatment of pneumonia and started on antibiotics. You significantly improved with antibiotic treatment. You tested negative for COVID and influenza. You will be discharged to home with a prescription for 4 more days of
antibiotics to complete a total 7-day course. Your home medication gabapentin was switched to a similar medication called pregabalin because of drowsiness. It is not clear that the gabapentin was causing this drowsiness but could potentially have
been contributing to it. Your home medication mirtazapine was also held for now as it can cause drowsiness. You should follow-up with your primary care physician for further evaluation regarding these medication changes.
Referrals:
Willian Aguirre DO [Family Provider, [facility]]
Prescriptions:
New
pregabalin 50 mg Capsule
50 mg PO TID Qty: 90 0RF
doxycycline hyclate 100 mg Capsule
100 mg PO Q12 4 Days Qty: 8 0RF
cefuroxime axetil 500 mg tablet
500 mg PO BID 4 Days Qty: 8 0RF
Continued
aspirin 81 MG tablet,chewable
81 mg PO DAILY Qty: 0 0RF
meclizine 25 mg tablet
25 mg PO TID PRN (Reason: dizziness) Qty: 20 0RF
rosuvastatin 40 mg Tablet
40 mg PO DAILY
Januvia 100 mg Tablet
100 mg PO DAILY
Jardiance 25 mg Tablet
25 mg PO DAILY
Rybelsus 3 mg Tablet
3 mg PO DAILY
metformin 1,000 MG tablet
1,000 mg PO BID Qty: 0 0RF
Held
mirtazapine [Remeron] 15 mg Tablet
2.5 mg PO DAILY
Hold Instructions: Hold this medication until follow-up with PCP, it may have been contributing to his drowsiness
Rx Instructions:
2.5 mg daily according to patient's medication list obtained by daughter from PCP
Discontinued
gabapentin 100 mg capsule
300 mg PO 3XD
Rx Instructions:
patient takes 100 mg tablet, 3 times daily
gabapentin 400 mg Capsule
400 mg PO BID
Discharge Orders:
Discharge Patient (As Directed); Ordered 02/02/25
Ordered By: Jose Greene
Discharge Date and Time
Print Language: BOTSWANAN
--- NOTE | 2025-02-02 13:40 | CM ---
patient seen at bedside with
IMM explained & signed. In chart
Discharge today
PLAN: Home, no needs
to transport
== END 2025-02-02 14:19 | disposition home or self-care (01) | DRG 871 ==
LOC: 3 WEST ACU 21:30
PROVIDERS: Internal Medicine; Nurse Practitioner; Student in an Organized Health Care Education/Training Program; ADMITTING PHYSICIAN Hospitalist; ATTENDING PHYSICIAN Internal Medicine; EMERGENCY PHYSICIAN Emergency Medicine; FAMILY PHYSICIAN Family Medicine
DX: A41.9 Sepsis, unspecified organism (principal); G92.8 Other toxic encephalopathy; J18.9 Pneumonia, unspecified organism; R65.20 Severe sepsis without septic shock; Z11.52 Encounter for screening for COVID-19; I25.10 Atherosclerotic heart disease of native coronary artery without angina pectoris; E11.42 Type 2 diabetes mellitus with diabetic polyneuropathy; Z79.899 Other long term (current) drug therapy
CPT/HCPCS: 70450; 71046; 80048; 80053; 81003; 82962; 83036; 83605; 84443; 84484; 85025; 85027; 87502; 87811; 93005; 96361; 96374; 96375; 97129; 97162; 97166; 97530; 99285